=== PATIENT | male | born 1990 | race Caucasian/White ===

== ENCOUNTER 2016-05-08 18:24 | Emergency (ER) | payer OTHER ==
--- NOTE | 2016-05-08 20:30 | DIAGNOSTIC IMAGING REPORT ---
PROCEDURE: XR CHEST 2 VIEW INDICATION: COUGH TECHNIQUE: PA and lateral views. COMPARISON: None. FINDINGS: Lungs are clear. Heart and mediastinum are normal. Thorax is normal. IMPRESSION: 1. Negative chest.
--- NOTE | 2016-05-08 22:01 | ED CLINICAL REPORT ---
Clinical Report - Physicians/Mid Levels [facility] [address] [place] [address] 05/08/2016 18:26 [id number] Time Seen: 19:23; initial patient contact. Arrived- By private vehicle. Historian- patient. HISTORY OF PRESENT ILLNESS Chief Complaint: COUGH and FEVER. This started about 3 days ago and is still present. It was gradual in onset. The illness is described as mild. The patient has had sputum production, a cough, nasal congestion, sinus pressure and sinus drainage. He has had fever, chills, a nasal discharge and ear pain. No difficulty breathing, chest discomfort or pain or muscle aches. Additional history - No known contact with a sick individual. No recent travel. Similar symptoms previously: None. Recent medical care: Not recently seen/assessed. REVIEW OF SYSTEMS No hay fever, pedal edema or calf pain. All systems otherwise negative, except as recorded above. PAST HISTORY Environmental Allergies. Tension-Type Headache. Migraine Headache. Medications: None. Allergies: No Known Drug Allergy. SOCIAL HISTORY Current some days light tobacco smoker. History of drug use: marijuana. ADDITIONAL NOTES The nursing notes have been reviewed with agreement regarding the chief complaint, PMH and patient medications and allergies. PHYSICAL EXAM Vital Signs: 05/08/2016 19:18 BP: 118/57. HR: 68. RR: 18. O2 saturation: 98%. Temp: 98.6 F. Pain level now: 0/10. Have been reviewed. Hypotensive. Heart rate normal. Respiratory rate normal. Temperature normal. Oxygen saturation normal. Appearance: Alert. No acute distress. Head: Tenderness present to percussion/palpation of the sinuses. Eyes: Eyes normal inspection. ENT: Ears normal. Mild generalized pharyngeal erythema. Neck: Normal inspection. No lymphadenopathy. CVS: Normal heart rate and rhythm. Heart sounds normal. Respiratory: No respiratory distress. Mild bilateral rhonchi present diffusely. Skin: No rash. Extremities: No calf tenderness. No lower extremity edema. Neuro: Oriented X 3. LABS, X-RAYS, AND EKG Chest X-ray: No acute disease. Normal lung markings present. Normal heart size. Mediastinum normal. Great vessels normal. Soft tissues normal. No infiltrate. No fracture. No bony lesion present. Views: PA and lateral. Technique: good. The X-rays were independently viewed by me and interpreted contemporaneously by me. Prior films were not available for comparison. Interpretation time: 2014. Laboratory Tests: Rapid Influenza Screen: (LAYLA: 05/08/2016 20:30) ( MsgRcvd 05/08/2016 20:56) Final results SPECIMEN DESCRIPTION: ... Test Result Flag Units (Reference) RAPID INFLUENZA SCREEN DATE: 05/08/16 INFLUENZA A: NEGATIVE SCREEN FOR INFLUENZA A INFLUENZA B: NEGATIVE SCREEN FOR INFLUENZA B . PROGRESS AND PROCEDURES Course of Care: 05/08/2016 21:38 BP: 99/61. HR: 63. RR: 20. O2 saturation: 98%. Pain level now: 1/10. Vital Signs: have been reviewed. Hypotensive. Heart rate normal. Respiratory rate normal. Temperature normal. Oxygen saturation normal. Disposition: Discharged home in good and improved condition. Condition: good. CLINICAL IMPRESSION Acute viral rhinitis. INSTRUCTIONS Alternate Tylenol (Acetaminophen) or Motrin (Ibuprofen) for fever. Take according to label instructions. Follow-up: Follow up with your doctor if not better. Call for an appointment. Screening today revealed the patient's blood pressure to be in the normal range. (Electronically signed by Hernan Guillen Dr. 05/10/2016 3:29)
--- NOTE | 2016-05-08 22:01 | ED ORDER SUMMARY ---
..... Patient: JAYSON BAUM OrderSheet [facility] VisitID: [id number] [place] [address] 26y, M Registration Date/Time: 05/08/2016 ORDER SHEET Weight: 90.7 kg (stated) Allergies: No Known Drug Allergy GENERAL ORDERS: Chest 2V Urgent (19:53 05/08/2016 Viktor Briggs) (Ack 19:54 AMcQuoid ER Tech1) (20:10 AMcQuoid ER Tech1) Rapid Influenza Screen (Nasal Pharyngeal) (...) Urgent (19:54 05/08/2016 Viktor Briggs) (Ack 19:54 AMcQuoid ER Tech1) (22:03 Nathalie Pelletier.Brenda) MEDICATION ORDERS: IV FLUIDS: ORDER SHEET NOTES: [Electronically signed by Kary Peguero R.N. (22:19 05/08/2016)] [Electronically signed by Hernan Guillen Dr. (03:29 05/10/2016)] [Electronically locked/signed by Kary Peguero R.N. (22:19 05/08/2016)]
--- NOTE | 2016-05-08 22:01 | ED ORDER SUMMARY ---
..... Patient: JAYSON BAUM OrderSheet [facility] VisitID: [id number] [place] [address] 26y, M Registration Date/Time: 05/08/2016 ORDER SHEET Weight: 90.7 kg (stated) Allergies: No Known Drug Allergy GENERAL ORDERS: Chest 2V Urgent (19:53 05/08/2016 Viktor Briggs) (Ack 19:54 AMcQuoid ER Tech1) (20:10 AMcQuoid ER Tech1) Rapid Influenza Screen (Nasal Pharyngeal) (...) Urgent (19:54 05/08/2016 Viktor Briggs) (Ack 19:54 AMcQuoid ER Tech1) (22:03 Nathalie Pelletier.Brenda) MEDICATION ORDERS: IV FLUIDS: ORDER SHEET NOTES: [Electronically signed by Kary Peguero R.N. (22:19 05/08/2016)] [Electronically signed by Hernan Guillen Dr. (03:29 05/10/2016)] [Electronically locked/signed by Kary Peguero R.N. (22:19 05/08/2016)]
--- NOTE | 2016-05-08 22:01 | ED CLINICAL REPORT ---
Clinical Report - Physicians/Mid Levels [facility] [address] [place] [address] 05/08/2016 18:26 [id number] Time Seen: 19:23; initial patient contact. Arrived- By private vehicle. Historian- patient. HISTORY OF PRESENT ILLNESS Chief Complaint: COUGH and FEVER. This started about 3 days ago and is still present. It was gradual in onset. The illness is described as mild. The patient has had sputum production, a cough, nasal congestion, sinus pressure and sinus drainage. He has had fever, chills, a nasal discharge and ear pain. No difficulty breathing, chest discomfort or pain or muscle aches. Additional history - No known contact with a sick individual. No recent travel. Similar symptoms previously: None. Recent medical care: Not recently seen/assessed. REVIEW OF SYSTEMS No hay fever, pedal edema or calf pain. All systems otherwise negative, except as recorded above. PAST HISTORY Environmental Allergies. Tension-Type Headache. Migraine Headache. Medications: None. Allergies: No Known Drug Allergy. SOCIAL HISTORY Current some days light tobacco smoker. History of drug use: marijuana. ADDITIONAL NOTES The nursing notes have been reviewed with agreement regarding the chief complaint, PMH and patient medications and allergies. PHYSICAL EXAM Vital Signs: 05/08/2016 19:18 BP: 118/57. HR: 68. RR: 18. O2 saturation: 98%. Temp: 98.6 F. Pain level now: 0/10. Have been reviewed. Hypotensive. Heart rate normal. Respiratory rate normal. Temperature normal. Oxygen saturation normal. Appearance: Alert. No acute distress. Head: Tenderness present to percussion/palpation of the sinuses. Eyes: Eyes normal inspection. ENT: Ears normal. Mild generalized pharyngeal erythema. Neck: Normal inspection. No lymphadenopathy. CVS: Normal heart rate and rhythm. Heart sounds normal. Respiratory: No respiratory distress. Mild bilateral rhonchi present diffusely. Skin: No rash. Extremities: No calf tenderness. No lower extremity edema. Neuro: Oriented X 3. LABS, X-RAYS, AND EKG Chest X-ray: No acute disease. Normal lung markings present. Normal heart size. Mediastinum normal. Great vessels normal. Soft tissues normal. No infiltrate. No fracture. No bony lesion present. Views: PA and lateral. Technique: good. The X-rays were independently viewed by me and interpreted contemporaneously by me. Prior films were not available for comparison. Interpretation time: 2014. Laboratory Tests: Rapid Influenza Screen: (LAYLA: 05/08/2016 20:30) ( MsgRcvd 05/08/2016 20:56) Final results SPECIMEN DESCRIPTION: ... Test Result Flag Units (Reference) RAPID INFLUENZA SCREEN DATE: 05/08/16 INFLUENZA A: NEGATIVE SCREEN FOR INFLUENZA A INFLUENZA B: NEGATIVE SCREEN FOR INFLUENZA B . PROGRESS AND PROCEDURES Course of Care: 05/08/2016 21:38 BP: 99/61. HR: 63. RR: 20. O2 saturation: 98%. Pain level now: 1/10. Vital Signs: have been reviewed. Hypotensive. Heart rate normal. Respiratory rate normal. Temperature normal. Oxygen saturation normal. Disposition: Discharged home in good and improved condition. Condition: good. CLINICAL IMPRESSION Acute viral rhinitis. INSTRUCTIONS Alternate Tylenol (Acetaminophen) or Motrin (Ibuprofen) for fever. Take according to label instructions. Follow-up: Follow up with your doctor if not better. Call for an appointment. Screening today revealed the patient's blood pressure to be in the normal range. (Electronically signed by Hernan Guillen Dr. 05/10/2016 3:29)
--- NOTE | 2016-05-08 22:01 | ED NURSING NOTES ---
Clinical Report - Nurses [facility] [address] [place] [address] 05/08/2016 18:26 Patient: JAYSON BAUM TRIAGE Triage time 19:19. Acuity: LEVEL 4. Chief Complaint: FEVER and "NOT FEELING WELL" and (People sick at work, no one sick at home.). 19:25 05/08/16. Alert. No acute distress. --19:25 Matias Krishnan R.N. 19:18 05/08/16. BP: 118/57 (regular adult cuff) taken on the left arm, via an automated monitor, while lying. HR: 68 (normal rate). RR: 18 (regular, unlabored and normal). O2 saturation: 98% on room air. Temp: 98.6 F (oral). Pain level now: 0/10. --19:25 Matias Krishnan R.N. Weight: 90.7 kg stated. Height/Length: 74 inches Per Patient. BMI: 25.7. --19:20 Matias Krishnan R.N. Medications None. --19:20 Matias Krishnan R.N. Allergies No Known Drug Allergy. --19:20 Matias Krishnan R.N. History Arrived by private vehicle. Historian: patient. Unaccompanied. Primary physician (None). Onset. (about 4 days ago). He has had a nasal discharge, chest congestion, a subjective fever, chills and fatigue. He has had nausea and a headache. Reports experiencing sweating episodes. He has had mild left ear pain ("popping sensation"). He has had vomiting (yesterday). The vomiting has occurred only once. ( Last PO intake this AM (arreola gouda breakfast sandwich with chips) and Snickers in the ER WR, drinking water and gatorade regularly.). Denies muscle aches or poor appetite. No chest pain, difficulty breathing or abdominal pain. Treatment SCOREKEEPER: (Advil last dose yesterday (helps)). PAST MEDICAL HX: Immunizations: up-to-date. Has not received seasonal influenza immunization. SOCIAL HX: Current every day smoker (Splif (tobacco and MJ)). History of heavy drug use: marijuana. No alcohol use. He has not traveled outside the [place] No infectious disease exposure. ABUSE ASSESSMENT: Abuse assessment: The patient was asked "Do you feel safe in your home?" and "Has anyone hurt you or threatened to hurt you?". No report of abuse. SELF HARM ASSESSMENT: A self harm assessment was performed. The patient answered "no" to the question "Do you have thoughts of harming or killing yourself?" and "Have you recently had thoughts about harming or killing others?". FALL RISK ASSESSMENT: Fall risk assessment completed. No fall risk identified. NUTRITIONAL RISK ASSESSMENT: The nutritional risk assessment revealed no deficiencies. FUNCTIONAL ASSESSMENT: Functional assessment: no impairments noted. LEARNING NEEDS ASSESSMENT: The learning needs assessment revealed no barriers. SKIN INTEGRITY ASSESSMENT: Skin integrity risk assessment completed. No skin integrity risk identified. --19:25 Matias Krishnan R.N. PROBLEMS: Immunizations. Environmental Allergies. Tension-Type Headache. Migraine Headache. --19:20 Matias Krishnan R.N. Assessment GENERAL / NEURO / PSYCH: Alert. Oriented X 4. Appears in no acute distress. Zeina Coma Scale: 15- eyes open spontaneously (4); best verbal response- oriented x 4 (5); best motor response- obeys commands (6). Patient appears calm and cooperative. RESPIRATORY: No respiratory distress. Respirations not labored. SKIN: Skin is warm and dry. --19:25 Matias Krishnan R.N. Interventions ID band on patient. To treatment room. No allergy band on patient. --19:25 Matias Krishnan R.N. Report given to the primary nurse. CHARLENE Preston. --19:25 Matias Krishnan R.N. PHYSICAL ASSESSMENT 19:25. Ambulatory to room. GENERAL / NEURO / PSYCH: Alert. Oriented X 4. Appears in no acute distress. Appears anxious. HEENT: Mucous membranes are pink. RESPIRATORY: Respirations not labored. CVS: Capillary refill less than 2 seconds. GI / : Abdomen nontender. SKIN: Skin intact. Skin is warm and dry. Normal skin turgor. --21:39 Kary Peguero R.N. NURSING PROGRESS NOTES Patient ID band checked for patient name: patient confirmed. Flu swab obtained by RN via nasal pharyngeal swab. Labeled in the presence of the patient and sent to lab. --20:29 Kary Peguero R.N. 21:37 05/08/16. BP: 99/61. HR: 63. RR: 20. O2 saturation: 98% on room air. Pain level now: 05/03. 20:30 05/08/16. BP: 110/70. HR: 58. RR: 18. O2 saturation: 97% on room air. Pain level now: 05/03. --21:38 Kary Peguero R.N. DISPOSITION / DISCHARGE No learning barriers present. Discharge instructions provided and reviewed with the patient. Patient verbalized understanding. Written instructions provided in [place]. The patient was discharged home. He left the Emergency Department ambulatory and via private vehicle. Patient driving. Medication list reviewed and validated. --22:19 Kary Peguero R.N. 21:37 05/08/16. BP: 99/61. HR: 63. RR: 20. O2 saturation: 98% on room air. Pain level now: 05/03. 20:30 05/08/16. BP: 110/70. HR: 58. RR: 18. O2 saturation: 97% on room air. Pain level now: 05/03. 19:18 05/08/16. BP: 118/57 (regular adult cuff) taken on the left arm, via an automated monitor, while lying. HR: 68 (normal rate). RR: 18 (regular, unlabored and normal). O2 saturation: 98% on room air. Temp: 98.6 F (oral). Pain level now: . --22:19 Kary Peguero R.N. Locked/Released at 05/08/2016 22:19 by Kary Peguero R.N.
--- NOTE | 2016-05-10 03:30 | ED MAR SUMMARY ---
..... Medication Administration Record [facility] [address] [place], [place] [id number] Patient: JAYSON BAUM Prabhu Visit ID: [id number] 26y, M Weight: 90.7 kg Height/Length: 74 in BMI: 25.7 ALLERGIES: No Known Drug Allergy
--- NOTE | 2016-05-10 03:30 | ED DISCHARGE INSTRUCTIONS ---
Patient: JAYSON BAUM General Instructions [facility] VisitID: [id number] [place] [address] 26y, M Registration Date/Time: 05/08/2016 Acute viral rhinitis. INSTRUCTIONS Alternate Tylenol (Acetaminophen) or Motrin (Ibuprofen) for fever. Take according to label instructions. Follow-up: Follow up with your doctor if not better. Call for an appointment. Screening today revealed the patient's blood pressure to be in the normal range. ADDITIONAL INFORMATION Viral Respiratory Illness [Adult] You have an Upper Respiratory Illness (URI) caused by a virus. This illness is contagious during the first few days. It is spread through the air by coughing and sneezing or by direct contact (touching the sick person and then touching your own eyes, nose or mouth). Most viral illnesses go away within 7-10 days with rest and simple home remedies. Sometimes, the illness may last for several weeks. Antibiotics will not kill a virus and are generally not prescribed for this condition. Home Care: 1) If symptoms are severe, rest at home for the first 2-3 days. When you resume activity, don't let yourself get too tired. 2) Avoid being exposed to cigarette smoke (yours or others). 3) Tylenol (acetaminophen) or ibuprofen (Advil, Motrin) will help fever, muscle aching and headache. (Persons under 18 with fever should not take aspirin since this may cause liver damage.) 4) Your appetite may be poor, so a light diet is fine. Avoid dehydration by drinking 6-8 glasses of fluids per day (water, soft drinks, juices, tea, soup). Extra fluids will help loosen secretions in the nose and lungs. 5) Chqh-jfe-tbyovxp cold medicines will not shorten the length of time youre sick, but they may be helpful for the following symptoms: cough (Robitussin DM); sore throat (Chloraseptic lozenges or spray); nasal and sinus congestion (Actifed, Sudafed, Chlortrimeton). Follow Up with your doctor or as advised if you dont improve over the next week. Get Prompt Medical Attention if any of the following occur: -- Cough with lots of colored sputum (mucus) or blood in your sputum -- Chest pain, shortness of breath, wheezing or have trouble breathing -- Severe headache; face, neck or ear pain -- Fever over 100.4 F (38.0 C) for more than three days -- You cant swallow due to throat pain Fever Control (Adult) A fever is a natural reaction of the body to an illness. In most cases, the temperature itself is not harmful. It actually helps the body fight infections. A fever does not need to be treated unless you feel very uncomfortable. Home Care If you feel warm, check your temperature. If you feel very uncomfortable and your temperature is at or higher than 100.4F (38C) oral, you may take acetaminophen (Tylenol) every 4 to 6 hours. If you cant take or keep down oral medicine, ask your pharmacist for Tylenol suppositories, which you can get without a prescription. If the fever does not respond to acetaminophen within 1 hour, take ibuprofen (Advil or Motrin). If this works, keep taking the ibuprofen every 6 to 8 hours. Note: If you have chronic liver or kidney disease or ever had a stomach ulcer or GI bleeding, talk with your doctor before using these medications. If either medication alone does not keep the fever down, you may alternate the two medicines every 3 to 4 hours, only if your healthcare provider has instructed you to do so. For example, take Motrin then wait 3 hours, take Tylenol then wait 3 hours, take Motrin, and so on. Follow your healthcare providers instructions exactly. Clothing: Keep clothing light because excess body heat is lost through the skin. The fever will go up if you wear extra layers or wrap in blankets. Fluids: Fever causes the body to lose water through evaporation. Drink plenty of fluids such as water, juice, clear sodas, santo robin, or lemonade. Do not use aspirin in anyone under 18 years of age who is ill with a fever. It can cause severe liver damage. Follow Up with your doctor or as advised by our staff if you do not get better after 48 hours. Get Prompt Medical Attention if any of the following occur: Fever does not get better after taking fever medication Fast or difficult breathing Earache, sinus pain, stiff or painful neck, headache, repeated diarrhea or vomiting You feel unusually irritable, drowsy, or confused A rash appears You feel weak or dizzy, or that you might faint You have been given the following additional information: Uri, Viral, No Abx (Adult) Fever Control (Adult) (Electronically signed by Hernan Guillen Dr. 05/10/2016 3:29)
--- NOTE | 2016-05-10 03:30 | ED MAR SUMMARY ---
..... Medication Administration Record [facility] [address] [place], [place] [id number] Patient: JAYSON BAUM Prabhu Visit ID: [id number] 26y, M Weight: 90.7 kg Height/Length: 74 in BMI: 25.7 ALLERGIES: No Known Drug Allergy
--- NOTE | 2016-05-10 03:30 | ED MED RECONCILIATION SUMMARY ---
Patient: JAYSON BAUM Medication Reconciliation Report [facility] VisitID: [id number] [address] [place] [address] 26y, M Registration Date/Time: 05/08/2016 Weight: 90.7 kg Height/Length: 74 in. BMI: 25.7 ALLERGIES: No Known Drug Allergy The patient's Home Medications are listed below: NONE. The source(s) of the original Home Medication information: Not obtained. The following Medications were given to the patient in the Emergency Department: None. The following Medications were prescribed to the patient: None.
--- NOTE | 2016-05-10 03:30 | ED MED RECONCILIATION SUMMARY ---
Patient: JAYSON BAUM Medication Reconciliation Report [facility] VisitID: [id number] [address] [place] [place] [address] 26y, M Registration Date/Time: 05/08/2016 Weight: 90.7 kg Height/Length: 74 in. BMI: 25.7 ALLERGIES: No Known Drug Allergy The patient's Home Medications are listed below: NONE. The source(s) of the original Home Medication information: Not obtained. The following Medications were given to the patient in the Emergency Department: None. The following Medications were prescribed to the patient: None.
== END 2016-05-08 22:10 | disposition home or self-care (01) ==
LOC: ED SRH 18:24
DX: J31.0 Chronic rhinitis (principal); B97.89 Other viral agents as the cause of diseases classified elsewhere; F17.210 Nicotine dependence, cigarettes, uncomplicated; F12.10 Cannabis abuse, uncomplicated
CPT/HCPCS: 91400